=== PATIENT | male | born 1995 | race Caucasian/White ===

== ENCOUNTER 2018-06-17 19:25 | Emergency (ER) | payer OTHER ==
[2018-06-17 22:36] LABS: URINE SOURCE CLEAN C
[2018-06-17 23:01] LABS: URINE BILIRUBIN NEGATIVE (NEGATIVE); URINE BLOOD NEGATIVE (NEGATIVE); URINE GLUCOSE (UA) NEGATIVE (NEGATIVE); URINE KETONE NEGATIVE (NEGATIVE); URINE LEUKOCYTE ESTERASE NEGATIVE (NEGATIVE); URINE NITRATE NEGATIVE (NEGATIVE); URINE PH 6.5 (4.6 - 8.0); URINE PROTEIN NEGATIVE (NEGATIVE); URINE UROBILINOGEN 0.2 E.U./dL (0.2 - 1.0)
[2018-06-17 23:09] LABS: URINE CLARITY CLEAR (CLEAR); URINE COLOR YELLOW; URINE MICROSCOPIC INDICATED? YES
[2018-06-17 23:10] LABS: URINE BACTERIA OCCASIONAL /hpf (NONE SEEN); URINE EPITHELIAL CELLS NONE SEEN /lpf (FEW); URINE RBC NONE SEEN /hpf (0-5); URINE WBC 0-2 /hpf (0-5)
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
--- NOTE | 2018-06-18 09:40 | Diagnostic Imaging Report ---
Right wrist 3 views Indication: Trauma Comparison: none Findings: There is 7 mm calcific density projecting adjacent to the ulnar styloid possibly due to old trauma. Otherwise no evidence of an acute fracture or dislocation. No significant focal soft tissue swelling. Impression: No evidence of an acute fracture. 7 mm calcific density projecting adjacent to the ulnar styloid possibly due to an old fracture. In the setting of trauma, if clinical symptoms persist and there is continued concern for an occult fracture, follow up exams in 5-7 days is suggested.
--- NOTE | 2018-06-18 09:49 | Diagnostic Imaging Report ---
Pelvis and right hip 3 views Indication: Trauma Comparison: none Findings: The bilateral hip joints are preserved. The SI joints are preserved. No evidence of acute fracture or dislocation. No significant focal soft tissue swelling. Copious stool is incidentally noted. Impression: No evidence of an acute fracture or dislocation. In the setting of trauma, if clinical symptoms persist and there is continued concern for an occult fracture, follow up exams in 5-7 days is suggested.
--- NOTE | 2018-06-18 09:50 | Diagnostic Imaging Report ---
Single limited view of the left hand Indication: pain Comparison: Comparison views of the right hand the same day Findings/impression: Single limited view of the left hand demonstrates no gross fracture or dislocation. Consider additional views if indicated. In the setting of trauma, if clinical symptoms persist and there is continued concern for an occult fracture, follow up exams in 5-7 days is suggested.
--- NOTE | 2018-06-18 09:52 | Diagnostic Imaging Report ---
Right hand 3 views Indication: Trauma Comparison: Left hand and right wrist x-rays the same day Findings: There is a 7 mm calcification projecting along the lateral proximal carpal region likely from old early and may have been due to old trauma. Otherwise no evidence of an acute fracture or dislocation. No significant focal soft tissue swelling. There may have been old trauma of the distal ulna. Impression: No evidence of an acute fracture. In the setting of trauma, if clinical symptoms persist and there is continued concern for an occult fracture, follow up exams in 5-7 days is suggested.
--- NOTE | 2018-06-18 10:17 | Diagnostic Imaging Report ---
CT pelvis without IV contrast HISTORY: Right hip pain, rule out fracture. Not able to bear weight COMPARISON: X-rays earlier the same day Technique: Axial images were obtained from the lower abdomen to the proximal bilateral femurs without IV contrast. Reconstructions were made. total DLP: 492, CTDI13.1 Findings: Moderate amount of stool is noted within the colon. Minimal degenerative changes of the lower lumbar spine are noted. The bilateral hip joints are preserved. No evidence of acute femoral fracture or dislocation. There is subtle irregularity of the left inferior pubic ramus (image 77, series 3) which is probably related to volume averaging. A nondisplaced fracture is considered less likely. Few bone [place] of the pelvis are noted. There is mild inflammatory changes along the subcutaneous tissues of the right greater trochanteric region. IMPRESSION: No evidence of an acute femoral fracture. No evidence of dislocation. Subtle irregularity of left inferior pubic ramus. This is probably related to volume averaging. A nondisplaced fracture is considered less likely. Please correlate with clinical findings If indicated short-term follow-up exam such as MRI may be obtained. Subcutaneous edema and probable mild contusion along the soft tissues lateral to the right greater trochanter.
== END 2018-06-18 01:00 | disposition home or self-care (01) ==
LOC: ER 19:25
DX: S62.314A Displaced fracture of base of fourth metacarpal bone, right hand, initial encounter for closed fracture (principal); S70.01XA Contusion of right hip, initial encounter; M41.85 Other forms of scoliosis, thoracolumbar region; V69.9XXA Occupant (driver) (passenger) of heavy transport vehicle injured in unspecified traffic accident, initial encounter; Y93.89 Activity, other specified; Y92.410 Unspecified street and highway as the place of occurrence of the external cause; Y99.8 Other external cause status
CPT/HCPCS: 99285; 96372; 29125; 73502; 73100; 73120; 73130; 72192; 81001; J1885; 73501